=== PATIENT | female | born 1985 | race Caucasian/White ===

== ENCOUNTER 2017-03-30 16:32 | Emergency (ER) | payer OTHER ==
[~2017-03-30] VITALS: Ht 170.2 cm; Wt 113.5 kg
[2017-03-30 17:25] LABS: BASOPHILS % (AUTO) 0.5 % (0.0-2.0); EOSINOPHILS % (AUTO) 2.5 % (1.0-6.0); HEMATOCRIT 38.7 % (36-46); LYMPHOCYTES # (AUTO) 2.2 K/uL (1.0-4.8); LYMPHOCYTES % (AUTO) 27.3 % (22.0-44.0); MEAN CORPUSCULAR HEMOGLOBIN 28.7 pg (26.0-34.0); MEAN CORPUSCULAR HGB CONC 33.6 G/dL (31.0-37.0); MEAN CORPUSCULAR VOLUME 85 fL (80-100); MONOCYTES # (AUTO) 0.4 K/uL (0.1-1.0); MONOCYTES % (AUTO) 5.3 % (2.0-9.0); NEUTROPHILS # (AUTO) 5.3 K/uL (1.8-7.7); NEUTROPHILS % (AUTO) 64.4 % (40.0-70.0); PLATELET COUNT (AUTO) 229 K/uL (150-450); RED BLOOD CELL COUNT(AUTO) 4.53 MIL/uL (4.00-5.20); RED CELL DISTRIBUTION WIDTH 14.9 % (11.5-14.5); WHITE BLOOD COUNT (AUTO) 8.2 K/uL (4.5-11.0)
[2017-03-30 17:41] LABS: ANION GAP 10 mmol/L (8-16); CALCIUM, TOTAL 8.7 mg/dL (8.8-10.5); CARBON DIOXIDE 25 mmol/L (22-29); CHLORIDE 104 mmol/L (98-107); CREATININE 0.81 mg/dL (0.60-1.30); GLOMERULAR FILTR. RATE CALC > 60 mL/min (>60); POTASSIUM 3.5 mmol/L (3.5-5.1); SODIUM SERUM 139 mmol/L (136-145); UREA NITROGEN, BLOOD 10 mg/dL (7-18)
[2017-03-30 17:45] LABS: ALANINE AMINOTRANSFERASE 29 U/L (12-78); ALBUMIN 3.2 g/dL (3.4-5.0); ASPARTATE AMINOTRANSFERASE 19 U/L (15-37); BILIRUBIN,TOTAL 0.5 mg/dL (0.1-1.0); TOTAL PROTEIN, SERUM 6.9 g/dL (6.4-8.2)
[2017-03-30 18:28] VITALS: BP 158/83
== END 2017-03-30 19:00 | disposition home or self-care (01) ==
LOC: EMS 16:35
DX: R03.0 Elevated blood-pressure reading, without diagnosis of hypertension (principal); J45.909 Unspecified asthma, uncomplicated; F17.210 Nicotine dependence, cigarettes, uncomplicated; Z88.0 Allergy status to penicillin
CPT/HCPCS: 93005; 99285

== ENCOUNTER 2017-08-30 16:06 | Emergency (ER) | payer OTHER ==
[~2017-08-30] VITALS: Ht 170.2 cm; Wt 104.5 kg
[2017-08-30] MEDS ORDERED: IBUP-2071 PO (16:13)
[2017-08-30 17:07] LABS: APPEARANCE,URINE CLOUDY (CLEAR); GLUCOSE, URINE (UA) NEGATIVE (NEGATIVE); KETONES,URINE TRACE mg/dL (NEGATIVE); LEUKOCYTE ESTERASE ,URINE LARGE (NEGATIVE); OCCULT BLOOD,URINE TRACE (NEGATIVE); PROTEIN,URINE POS 1+ (NEGATIVE)
[2017-08-30 17:18] LABS: RBC,URINE 0-2 /HPF (0-2)
[2017-08-30 17:20] LABS: SQUAMOUS EPITHELIAL CELL,UR Many /LPF (None Seen)
[2017-08-30 17:27] VITALS: BP 137/64
[2017-08-30] MEDS ORDERED: NITROFURANTOIN/NITROFURAN MAC 100 MG CAPSULE [MACROBID] PO ONE (18:00)
== END 2017-08-30 18:02 | disposition home or self-care (01) ==
LOC: EMS 16:09
DX: N39.0 Urinary tract infection, site not specified (principal); J45.909 Unspecified asthma, uncomplicated; F17.210 Nicotine dependence, cigarettes, uncomplicated; Z88.0 Allergy status to penicillin
CPT/HCPCS: 87086; 99284

== ENCOUNTER 2023-04-22 20:15 | Emergency (ER) | payer OTHER ==
[~2023-04-22] VITALS: Ht 167.6 cm; Wt 105.0 kg
[~2023-04-22 20:15] MED LIST: IBUP-1493 PO
[2023-04-22 20:52] VITALS: BP 160/70; PULSE 113; RESP 17; TEMP 98.4
[2023-04-22 21:30] LABS: BASOPHILS % (AUTO) 0.5 % (0.0-2.0); EOSINOPHILS % (AUTO) 0.9 % (1.0-6.0); HEMATOCRIT 40.2 % (36-46); HEMOGLOBIN 13.2 g/dL (12.0-16.0); LYMPHOCYTES # (AUTO) 1.9 K/uL (1.0-4.8); MEAN CORPUSCULAR HEMOGLOBIN 29.5 pg (26.0-34.0); MEAN CORPUSCULAR HGB CONC 32.8 G/dL (31.0-37.0); MEAN CORPUSCULAR VOLUME 90 fL (80-100); MONOCYTES # (AUTO) 0.8 K/uL (0.1-1.0); MONOCYTES % (AUTO) 8.3 % (2.0-9.0); NEUTROPHILS # (AUTO) 6.3 K/uL (1.8-7.7); NEUTROPHILS % (AUTO) 69.3 % (40.0-70.0); PLATELET COUNT (AUTO) 291 K/uL (150-450); RED BLOOD CELL COUNT(AUTO) 4.49 MIL/uL (4.00-5.20); RED CELL DISTRIBUTION WIDTH 13.9 % (11.5-14.5)
[2023-04-22] MEDS ORDERED: SODIUM CHLORIDE 0.9% 2,000 ML IV ONE (21:30)
[2023-04-22] MEDS ORDERED: LORazepam 2 MG/ML VIAL IVP ONE (21:30)
[2023-04-22 21:35] LABS: ANION GAP 12 mmol/L (8-16); CALCIUM, TOTAL 8.4 mg/dL (8.8-10.5); CARBON DIOXIDE 25 mmol/L (22-29); CHLORIDE 102 mmol/L (98-107); CREATININE 0.69 mg/dL (0.60-1.30); GLOMERULAR FILTR. RATE CALC > 60 mL/min (>60); GLUCOSE,RANDOM 109 mg/dL (70-110); SODIUM SERUM 139 mmol/L (136-145)
[2023-04-22 21:47] LABS: POTASSIUM 2.7 mmol/L (3.5-5.1)
[2023-04-22] MEDS ORDERED: POTASSIUM CHLORIDE 10% 40 MEQ/30 ML LIQUID UDCUP PO ONE ×2 (22:00→22:20)
[2023-04-22] MEDS ORDERED: MAG30ORA11 PO (22:12)
== END 2023-04-22 22:24 | disposition home or self-care (01) ==
LOC: EMS 20:20
DX: E86.0 Dehydration (principal); R53.1 Weakness; E87.6 Hypokalemia; J45.909 Unspecified asthma, uncomplicated; F17.210 Nicotine dependence, cigarettes, uncomplicated; Z90.49 Acquired absence of other specified parts of digestive tract; Z81.1 Family history of alcohol abuse and dependence; Z88.0 Allergy status to penicillin
CPT/HCPCS: 99284; 96374; 96361; 80048; 84484; 84703; 85025; 36415; 93005; G0480; J2060; J7030

== ENCOUNTER 2023-04-29 13:27 | Emergency (ER) | payer OTHER ==
[~2023-04-29] VITALS: Ht 167.6 cm; Wt 104.0 kg
[~2023-04-29 13:27] MED LIST changes: +MAG30ORA11 PO
[2023-04-29 13:37] VITALS: BP 156/101; PULSE 113; RESP 16; TEMP 98.4
[2023-04-29] MEDS ORDERED: HYDR25TA PO (13:38)
[2023-04-29] MEDS ORDERED: AMLO5TAB66 PO (13:38)
== END 2023-04-29 16:08 | disposition left against medical advice (07) ==
LOC: EMS 13:27
DX: F41.9 Anxiety disorder, unspecified (principal); Z53.21 Procedure and treatment not carried out due to patient leaving prior to being seen by health care provider
CPT/HCPCS: 99281; Z7502

== ENCOUNTER 2023-05-15 09:37 | Emergency (ER) | payer OTHER ==
[~2023-05-15] VITALS: Ht 160 cm; Wt 98.0 kg
[~2023-05-15 09:37] MED LIST changes: +AMLO5TAB66 PO; +HYDR25TA PO; -IBUP-1493 PO; -MAG30ORA11 PO
[2023-05-15 09:44] VITALS: TEMP 98.6
[2023-05-15 11:45] VITALS: BP 130/82; PULSE 90; RESP 18
== END 2023-05-15 11:57 | disposition home or self-care (01) ==
LOC: EMS 09:56
DX: F10.20 Alcohol dependence, uncomplicated (principal); F41.9 Anxiety disorder, unspecified; J45.909 Unspecified asthma, uncomplicated; F17.210 Nicotine dependence, cigarettes, uncomplicated; Z90.49 Acquired absence of other specified parts of digestive tract; Z88.0 Allergy status to penicillin
CPT/HCPCS: 99281; Z7502